=== PATIENT | female | born 1945 | race Two or more races ===

== ENCOUNTER 2023-09-17 08:45 | Inpatient (IN) | payer OTHER ==
[~2023-09-17] VITALS: Ht 152.4 cm; Wt 70.8 kg
[2023-09-17] MEDS ORDERED: TOPROL XL25 M1 PO (13:12)
[2023-09-17] MEDS ORDERED: COZAAR25 MG PO (13:12)
[2023-09-17] MEDS ORDERED: GLIPIZIDE XL5 MG PO (13:13)
[2023-09-17] MEDS ORDERED: LIPITOR20 MG PO (13:13)
[2023-09-17] MEDS ORDERED: JANUMET 50-1,01 EACH PO (13:13)
[2023-09-17] MEDS ORDERED: LEVOTHYROXINE25 MCG PO (13:13)
[2023-09-17 13:55] LABS: PH,URINE 6.5 (5.0-8.0); URINE APPEARANCE Clear; URINE BILIRRUBIN Negative (NEGATIVE); URINE BLOOD Negative; URINE COLOR Yellow; URINE GLUCOSE Negative (NEGATIVE); URINE LEUKOCYTE Trace; URINE NITRATE Positive; URINE PROTEIN Negative (NEGATIVE); URINE UROBILINOGEN 0.2 E.U./dl
[2023-09-17 13:59] LABS: URINE EPITHELIAL CELLS 3.8 uL (0.0-38.8); URINE RBC 4.3 uL (0.0-20.8); URINE WBC 22.7 uL (0.0-23.2)
[2023-09-17 14:02] LABS: HEMATOCRIT 37.7 % (36.0-45.00); HEMOGLOBIN 12.8 g/dL (12.0-15.00); MEAN CORPUSCULAR HEMOGLOBIN 27.2 pg (27.00-32.0); PLATELET COUNT 222 K/uL (150-450); RED BLOOD COUNT 4.71 M/uL (4.00-6.00); RED CELL DISTRIBUTION WIDTH 14.7 % (11.5-14.5)
[2023-09-17 14:04] LABS: URINE BACTERIA > 9821.5 uL (0.0-1933)
[2023-09-17 14:35] LABS: PARTIAL THROMBOPLASTIN TIME 25.6 SECONDS (22.0-34.0); PROTHROMBIN TIME 10.5 SECONDS (9.0-11.5)
[2023-09-17 14:46] LABS: ALBUMIN 3.8 gm/dL (3.4-5.0); BILIRUBIN TOTAL 0.57 mg/dL (0.3-1.2); CALCIUM 9.8 mg/dL (8.5-10.1); CREATININE SERUM 0.9 mg/dL (0.55-1.02); GFR 60.71; GLOBULINA 3.4 G/DL (2.4-3.5); PHOSPHOROUS 3.3 mg/dL (2.5-4.9); POTASSIUM 3.75 mEq/L (3.5-5.1); TOTAL PROTEIN 7.2 gm/dL (6.4-8.2)
[2023-10-17] MEDS ORDERED: GLIMEPIRIDE4 M1 ×2 (15:07→15:11)
[2023-10-17] MEDS ORDERED: ANASTROZOLE1 MG (15:07)
[2023-10-17] MEDS ORDERED: JANUMET 50-1,01 EACH (15:08)
[2023-10-17] MEDS ORDERED: LEVOTHYROXINE25 MC1 (15:08)
[2023-10-17] MEDS ORDERED: METOPROLOL SUC100 MG (15:09)
[2023-10-17] MEDS ORDERED: VALSARTAN-HCTZ1 EAC3 (15:09)
[2023-10-17 19:37] LABS: HEMATOCRIT 37.1 % (36.0-45.00); HEMOGLOBIN 12.5 g/dL (12.0-15.00); MEAN CELL VOLUME 79.5 fL (80.00-100.00); MEAN CORPUSCULAR HEMOGLOBIN 26.7 pg (27.00-32.0); MEAN CORPUSCULAR HGB CONC 33.5 g/dl (32.0-36.0); PLATELET COUNT 184 K/uL (150-450); RED BLOOD COUNT 4.67 M/uL (4.00-6.00); RED CELL DISTRIBUTION WIDTH 14.9 % (11.5-14.5)
[2023-10-17 19:50] LABS: ALBUMIN 3.3 gm/dL (3.4-5.0); CALCIUM 9.2 mg/dL (8.5-10.1); CREATININE SERUM 0.94 mg/dL (0.55-1.02); GFR 57.74; MAGNESIUM 1.9 mg/dL (1.8-2.4); PHOSPHOROUS 3.2 mg/dL (2.5-4.9); POTASSIUM 3.87 mEq/L (3.5-5.1)
[2023-10-18 08:40] LABS: ALBUMIN 2.9 gm/dL (3.4-5.0); CALCIUM 8.8 mg/dL (8.5-10.1); CREATININE SERUM 0.96 mg/dL (0.55-1.02); GFR 56.36; POTASSIUM 3.79 mEq/L (3.5-5.1)
[2023-10-18 08:49] LABS: HEMATOCRIT 34.1 % (36.0-45.00); HEMOGLOBIN 11.5 g/dL (12.0-15.00); MEAN CELL VOLUME 80.5 fL (80.00-100.00); MEAN CORPUSCULAR HEMOGLOBIN 27.2 pg (27.00-32.0); MEAN CORPUSCULAR HGB CONC 33.8 g/dl (32.0-36.0); PLATELET COUNT 202 K/uL (150-450); RED BLOOD COUNT 4.23 M/uL (4.00-6.00); RED CELL DISTRIBUTION WIDTH 14.9 % (11.5-14.5)
[2023-10-18] MEDS ORDERED: HYOSCYAMINE0.125 M1 SL (11:33)
[2023-10-18] MEDS ORDERED: PEPCID AC20 MG PO (11:34)
[2023-10-18] MEDS ORDERED: TRAM1TAB98 PO (11:34)
== END 2023-10-18 13:51 | disposition home or self-care (01) | DRG 331 ==
LOC: SURG 10-17 08:45 → O/R 10-17 10:11 → SURG 10-17 12:00 → SURH 10-17 15:45
PROVIDERS: ADMIT Surgery; ATTEND Surgery
PROC: 0DBH4ZZ Excision of Cecum, Percutaneous Endoscopic Approach (ICD-10-PCS; principal; 2023-10-17 12:00)
DX: D12.0 Benign neoplasm of cecum (principal); Z20.822 Contact with and (suspected) exposure to COVID-19